=== PATIENT | female | born 1990 | race Two or more races ===

== ENCOUNTER 2018-02-06 11:45 | Emergency (ER) | payer MEDICAID, OTHER ==
[~2018-02-06] VITALS: Ht 154.9 cm; Wt 50.0 kg
[~2018-02-06 11:45] MED LIST: DIVA500T52 PO; QUET100T PO
[2018-02-06 12:22] VITALS: BP 105/67
[2018-02-06] MEDS ORDERED: IBUPROFEN 600 MG TABLET PO ONE (12:30)
[2018-02-06] MEDS ORDERED: BACITRACIN 0.9 GM PACKET OINTMENT TP ONE (12:30)
== END 2018-02-06 13:35 | disposition home or self-care (01) ==
LOC: EMS 11:46
DX: M25.571 Pain in right ankle and joints of right foot (principal); M25.531 Pain in right wrist; Z48.01 Encounter for change or removal of surgical wound dressing; F12.90 Cannabis use, unspecified, uncomplicated; F31.9 Bipolar disorder, unspecified; Z91.018 Allergy to other foods